=== PATIENT | male | born 1985 | race African-American/Black ===

== ENCOUNTER 2018-07-24 15:55 | Emergency (ER) | payer SELFPAY ==
[2018-07-24 16:10] VITALS: BP 123/60; PULSE 94; TEMP 98.2; BMI 22.4
--- NOTE | 2018-07-24 16:11 | PDOC ---
Rapid Medical Evaluation Time Seen by Provider: 07/24/18 16:07 Medical Evaluation: Allergies Allergy/AdvReac Type Severity Reaction Status Date / Time No Known Allergies Allergy Verified 07/24/18 16:10 Vital Signs Temp Pulse Resp BP Pulse Ox 98.2 F 94 H 18 123/60 100 07/24/18 16:08 07/24/18 16:08 07/24/18 16:08 07/24/18 16:08 07/24/18 16:08 07/24/18 16:10 Pt c/o: rt ear and jaw pain, no fever or dental pain Pt on brief exam: vss, post pharynx intact Pt ordered for: none Pt to proceed to the ED Discharge Disposition - Diagnosis Ear pain, right - Referrals - Patient Instructions - Post Discharge Activity
[2018-07-24] MEDS ORDERED: KETOROLAC TROMETHAMINE 60 MG/2 ML VIAL IM ONE (16:26)
[2018-07-24] MEDS ORDERED: KETOROLAC TROMETHAMINE 60 MG/2 ML VIAL ONE (16:28)
--- NOTE | 2018-07-24 16:32 | PDOC ---
History of Present Illness - General Chief Complaint: Ear Problem Stated Complaint: LT FACE SWOLLEN Time Seen by Provider: 07/24/18 16:07 History Source: Patient Exam Limitations: Clinical Condition - History of Present Illness Initial Comments: 07/24/18 16:44 Patient with no significant past medical history present with complaint of right jaw and anterior ear pain with problem opening mouth wide patient reported increased pain to jaw with opening of the month. Denies any trauma or injury to jaw. Denies any tooth pain. Denies any other symptoms Timing/Duration: other (4 days) Past History - Past Medical History Allergies/Adverse Reactions: Allergies Allergy/AdvReac Type Severity Reaction Status Date / Time No Known Allergies Allergy Verified 07/24/18 16:10 Home Medications: Ambulatory Orders Ketorolac Tromethamine [Toradol -] 10 mg PO TID #21 tablet 07/24/18 Oxycodone HCl/Acetaminophen [Percocet 5-325 mg Tablet] 1 - 2 tab PO Q6H PRN #6 tab MDD 4 07/24/18 COPD: No - Immunization History Immunization Up to Date: No - Suicide/Smoking/Psychosocial Hx Smoking History: Never smoked Have you smoked in the past 12 months: No Information on smoking cessation initiated: No Hx Alcohol Use: No Drug/Substance Use Hx: No Review of Systems - Review of Systems Able to Perform ROS?: Yes Is the patient limited Tuvaluan proficient: No Constitutional: No: Chills, Fever HEENTM: Yes: Symptoms Reported, See HPI, Ear Pain (right). No: Eye Pain, Blurred Vision, Tearing, Recent change in vision, Double Vision, Cataracts, Ocular Prothesis, Ear Discharge, Nose Pain, Nose Congestion, Tinnitus, Nose Bleeding, Hearing Loss, Throat Pain, Throat Swelling, Mouth Pain, Dental Problems, Difficulty Swallowing, Mouth Swelling, Other Respiratory: No: Symptoms reported, See HPI, Cough, Orthopnea, Shortness of Breath, SOB with Exertion, SOB at Rest, Stridor, Wheezing, Productive cough, Hemoptysis, Other Cardiac (ROS): No: Symptoms Reported, See HPI, Chest Pain, Edema, Irregular Heart Rate, Lightheadedness, Palpitations, Syncope, Chest Tightness, Other ABD/GI: No: Nausea, Vomiting Musculoskeletal: Yes: See HPI, Muscle Pain (right tmj) Neurological: Yes: Headache. No: Numbness, Paresthesia, Dizziness All Other Systems: Reviewed and Negative *Physical Exam - Vital Signs Last Vital Signs Temp Pulse Resp BP Pulse Ox 98.2 F 94 H 18 123/60 100 07/24/18 16:08 07/24/18 16:08 07/24/18 16:08 07/24/18 16:08 07/24/18 16:08 - Physical Exam Comments: 07/24/18 17:09 GENERAL: Well developed, well nourished. Awake and alert. No acute distress. HEENT: moderate point tenderness over right TMJ. Tenderness worse with occlusion of mouth against resistant. no erythema or swelling to area. Normocephalic, atraumatic. normal external ear canal b/l TM normal b/l. PERRLA, EOMI. No conjunctival pallor. Sclera are non-icteric. Moist mucous membranes. Oropharynx is clear. NECK: Supple. Full ROM. CARDIOVASCULAR: Regular rate and rhythm. No murmurs, rubs, or gallops. Distal pulses are 2+ and symmetric. PULMONARY: No evidence of respiratory distress. . MUSCULOSKELETAL Normal range of motion at all joints. SKIN: Warm and dry. Normal capillary refill. No rashes. No erythema NEUROLOGICAL: Alert, awake, appropriate. Gait is normal without ataxia. PSYCHIATRIC: Cooperative. Good eye contact. Appropriate mood General Appearance: Yes: Nourished, Appropriately Dressed, Mild Distress HEENT: positive: EOMI, JANNY, Normal ENT Inspection Respiratory/Chest: positive: Respiratory Distress Medical Decision Making - Medical Decision Making 07/24/18 17:13 Patient with no significant past medical history present with complaint of right jaw and anterior ear pain with problem opening mouth wide patient reported increased pain to jaw with opening of the month. Denies any trauma or injury to jaw. Denies any tooth pain. Denies any other symptoms 07/24/18 17:37 Exam significant for moderate tenderness to right TMJ which is worse with occlusion of mouth against resistance. Normal ear exam. Patient stable for discharge on NSAIDS with oral surgery follow-up *DC/Admit/Observation/Transfer Diagnosis at time of Disposition: Ear pain, right, Arthralgia of right temporomandibular joint - Discharge Dispostion Disposition: HOME Condition at time of disposition: Stable Decision to Admit order: No - Prescriptions Prescriptions: Ketorolac Tromethamine [Toradol -] 10 mg PO TID #21 tablet Oxycodone HCl/Acetaminophen [Percocet 5-325 mg Tablet] 1 - 2 tab PO Q6H PRN #6 tab MDD 4 PRN Reason: Pain - Referrals Referrals: [facility] [[facility]] - Patient Instructions Printed Discharge Instructions: Temporomandibular Disorder, DI for Temporomandibular Disorder Additional Instructions: Take prescribed medication as needed for pain. Follow-up with referred dental clinic - Post Discharge Activity
== END 2018-07-24 16:58 | disposition home or self-care (01) ==
LOC: JERFT 15:55
PROC: 3E0233Z Introduction of Anti-inflammatory into Muscle, Percutaneous Approach (ICD-10-PCS; principal; 2018-07-24)
DX: M26.621 Arthralgia of right temporomandibular joint (principal); H92.01 Otalgia, right ear
CPT/HCPCS: 99281-25

== ENCOUNTER 2020-11-06 19:48 | Emergency (ER) | payer OTHER ==
[2020-11-06 20:01] VITALS: TEMP 98.6; BMI 27.1
[2020-11-06] MEDS ORDERED: LACTATED RINGERS SOLUTION 1,000 ML with POTASSIUM CHLORIDE 20 MEQ IV ONE (20:13)
[2020-11-06] MEDS ORDERED: ACETAMINOPHEN 1000 MG/100 ML VIAL (NON FORMULARY) IVPB ONE (20:13)
[2020-11-06] MEDS ORDERED: ONDANSETRON 4 MG/2 ML VIAL IVPUSH ONE (20:13)
[2020-11-06] MEDS ORDERED: ONDANSETRON 4 MG/2 ML VIAL ONE (20:16)
[2020-11-06] MEDS ORDERED: ACETAMINOPHEN INJECTION 100 ML IVPB ONE (20:16)
[2020-11-06] MEDS ORDERED: FAMOTIDINE 20 MG/50 ML IVPB 20 MG/50 ML MG IVPB ONE ×2 (20:16)
[2020-11-06 20:38] LABS: BASO % 1.2 % (0-2.0); EOS % 0.3 % (0-4.5); HEMATOCRIT 42.3 % (35.4-49); HEMOGLOBIN 14.4 GM/dL (11.7-16.9); LYMPH % 21.1 % (8-40); MCH 28.6 pg (25.7-33.7); MEAN CELL VOLUME 84.3 fl (80-96); MONO % 3.6 % (3.8-10.2); NEUT % 73.8 % (42.8-82.8); PLATELET COUNT 300 10^3/uL (134-434); RBC 5.02 M/mm3 (4.00-5.60); RDW 14.6 % (11.9-15.9); WHITE BLOOD COUNT 8.1 K/mm3 (4.0-10.0)
[2020-11-06] MEDS ORDERED: morphine CARPU-JECT 4 MG/1 ML DISP.SYRIN IVPUSH ONE (20:39)
[2020-11-06] MEDS ORDERED: morphine SULFATE 4 MG/ML VIAL ONE (20:42)
[2020-11-06 20:58] LABS: CALCIUM 8.8 mg/dL (8.5-10.1)
[2020-11-06 20:59] LABS: BLOOD UREA NITROGEN 10.3 mg/dL (7-18)
[2020-11-06] MEDS ORDERED: LACTATED RINGERS SOLUTION 1,000 ML/1,000 ML INFUS.BAG IV SCH (21:00)
[2020-11-06 21:02] LABS: CREATININE 1.3 mg/dL (0.55-1.3)
[2020-11-06 21:03] LABS: BILIRUBIN,TOTAL 0.9 mg/dL (0.2-1); TOT PROT 7.6 g/dl (6.4-8.2)
[2020-11-06] MEDS ORDERED: HYDROmorphone HCL CARPU-JECT 2 MG/1 ML DISP.SYRIN IVPUSH ONE (22:23)
[2020-11-06] MEDS ORDERED: HYDROmorphone HCl 2 MG/ML VIAL ONE (22:45)
[2020-11-06 23:55] VITALS: BP 118/58; PULSE 72
== END 2020-11-07 00:26 | disposition home or self-care (01) ==
LOC: JER 19:48
PROC: 3E033NZ Introduction of Analgesics, Hypnotics, Sedatives into Peripheral Vein, Percutaneous Approach (ICD-10-PCS; principal; 2020-11-06)
PROC: 3E033GC Introduction of Other Therapeutic Substance into Peripheral Vein, Percutaneous Approach (ICD-10-PCS; 2020-11-06)
PROC: 3E033GC Introduction of Other Therapeutic Substance into Peripheral Vein, Percutaneous Approach (ICD-10-PCS; 2020-11-06)
PROC: 3E033GC Introduction of Other Therapeutic Substance into Peripheral Vein, Percutaneous Approach (ICD-10-PCS; 2020-11-06)
DX: R10.84 Generalized abdominal pain (principal); R11.2 Nausea with vomiting, unspecified; K29.20 Alcoholic gastritis without bleeding
CPT/HCPCS: 36415; 74177-TC; 80053; 83690; 85025; 99284-25; J0131; Q9967

== ENCOUNTER 2023-04-23 20:42 | Emergency (ER) | payer OTHER ==
[2023-04-23 20:54] VITALS: BMI 24.4
[2023-04-23] MEDS ORDERED: METOCLOPRAMIDE HCL INJECTION 10 MG/2 ML VIAL IVPUSH ONE (21:41)
[2023-04-23] MEDS ORDERED: SODIUM CHLORIDE 0.9% 500 ML INFUS.BAG IV ONE ×2 (21:41→23:21)
[2023-04-23] MEDS ORDERED: METOCLOPRAMIDE HCL INJECTION 10 MG/2 ML VIAL ONE (21:54)
[2023-04-23] MEDS ORDERED: ONDANSETRON 4 MG/2 ML VIAL ONE (21:58)
[2023-04-23] MEDS ORDERED: ONDANSETRON 4 MG/2 ML VIAL IVPUSH ONE (22:04)
[2023-04-23 22:31] LABS: BASO % 0.2 % (0-2.0); EOS % 0.4 % (0-4.5); HEMATOCRIT 42.3 % (35.4-49); HEMOGLOBIN 14.1 GM/dL (11.7-16.9); LYMPH % 6.9 % (8-40); MCH 28.4 pg (25.7-33.7); MCHC 33.3 g/dl (32.0-35.9); MEAN CELL VOLUME 85.2 fl (80-96); MEAN PLT VOLUME 8.1 fl (7.5-11.1); MONO % 5.5 % (3.8-10.2); PLATELET COUNT 337 10^3/uL (134-434); RBC 4.97 M/mm3 (4.00-5.60); RDW 14.5 % (11.9-15.9); WHITE BLOOD COUNT 14.5 K/mm3 (4.0-10.0)
[2023-04-23 22:39] LABS: POTASSIUM 3.2 mmol/L (3.5-5.1)
[2023-04-23 22:41] LABS: ALBUMIN 4.1 g/dl (3.4-5.0); CALCIUM 9.2 mg/dL (8.5-10.1)
[2023-04-23 22:42] LABS: BLOOD UREA NITROGEN 20.6 mg/dL (7-18); MAGNESIUM 1.8 mg/dL (1.8-2.4)
[2023-04-23 22:44] LABS: CREATININE 1.2 mg/dL (0.55-1.3)
[2023-04-23 22:46] LABS: BILIRUBIN,TOTAL 0.9 mg/dL (0.2-1); TOT PROT 7.8 g/dl (6.4-8.2)
[2023-04-23] MEDS ORDERED: POTASSIUM CHLORIDE ORAL LIQUID 20 MEQ/15 ML PO ONE (23:22)
[2023-04-23] MEDS ORDERED: POTASSIUM CHLORIDE ORAL LIQUID 20 MEQ/15 ML ONE (23:30)
[2023-04-24 01:00] VITALS: TEMP 98.4
[2023-04-24] MEDS ORDERED: HALOPERIDOL LACTATE 5 MG/ML IM ONE (01:46)
[2023-04-24] MEDS ORDERED: HALOPERIDOL LACTATE 5 MG/ML ONE (01:47)
[2023-04-24 02:27] LABS: PH,URINE 7.5 (5.0-8.0); URINE APPEARANCE CLEAR; URINE BILIRUBIN NEGATIVE (NEGATIVE); URINE COLOR YELLOW; URINE GLUCOSE (UA) NEGATIVE (NEGATIVE); URINE KETONE TRACE (NEGATIVE); URINE LEUK ESTERASE NEGATIVE (NEGATIVE); URINE NITRITE NEGATIVE (NEGATIVE); URINE PROTEIN NEGATIVE (NEGATIVE); URINE UROBILINOGEN 0.2 mg/dL (0.2-1.0)
[2023-04-24] MEDS ORDERED: ONDANSETRON 4 MG/2 ML VIAL IVPUSH ONE (02:42)
[2023-04-24] MEDS ORDERED: ONDANSETRON 4 MG/2 ML VIAL ONE (02:44)
[2023-04-24 05:17] VITALS: BP 113/64; PULSE 66; RESP 18
== END 2023-04-24 05:17 | disposition home or self-care (01) ==
LOC: JER 20:42
PROC: 3E033GC Introduction of Other Therapeutic Substance into Peripheral Vein, Percutaneous Approach (ICD-10-PCS; principal; 2023-04-23)
PROC: 3E033GC Introduction of Other Therapeutic Substance into Peripheral Vein, Percutaneous Approach (ICD-10-PCS; 2023-04-23)
PROC: 3E033GC Introduction of Other Therapeutic Substance into Peripheral Vein, Percutaneous Approach (ICD-10-PCS; 2023-04-23)
PROC: 3E033GC Introduction of Other Therapeutic Substance into Peripheral Vein, Percutaneous Approach (ICD-10-PCS; 2023-04-23)
PROC: 3E023GC Introduction of Other Therapeutic Substance into Muscle, Percutaneous Approach (ICD-10-PCS; 2023-04-23)
DX: F12.988 Cannabis use, unspecified with other cannabis-induced disorder (principal); R11.2 Nausea with vomiting, unspecified; R10.84 Generalized abdominal pain; D72.829 Elevated white blood cell count, unspecified; Z20.822 Contact with and (suspected) exposure to COVID-19
CPT/HCPCS: 0241U-QW; 36415; 74177-TC; 80053; 81003; 83690; 83735; 85025; 93005; 93010; 96372; 96374; 96375; 96376; 99285-25